=== PATIENT | female | born 1990 | race Asian ===

== ENCOUNTER → 2019-06-22 | Outpatient (CLI) | payer MEDICAID ==
--- NOTE | 2019-06-22 16:50 | RADIOLOGY REPORT (SQ) ---
EXAM DESCRIPTION: U/S [id number] TRNABD 1GES W/ODOP COMPLETED DATE/TIME: 06/22/2019 1:41 pm REASON FOR STUDY: Z34.81 ENCOUNTER FOR SUPRVSN OF NORMAL , FIRST TRIMESTER Z34.81 ENCOUNTE R FOR SUPRVSN OF NORMAL , FIRST TRIM COMPARISON: None. TECHNIQUE: Transabdominal static and realtime grayscale images acquired of the pelvis. Additional se lected spectral and color Doppler images recorded. All images stored on PACs. bHCG: Not available. CLINICAL DATES: 10 week 3 day LIMITATIONS: None. FINDINGS: FETUS: Single Living intrauterine . ULTRASOUND EGA: 11 week 6 day ULTRASOUND MITCHEL: 01/05/2020 EFW: Not applicable less than 20 weeks. CRL: 5.1 cm FHR: 175 beats per minute. SURVEY: Too early to assess. AMNIOTIC FLUID: Adequate amount. PLACENTA: Not yet developed due to early gestation. SUBCHORIONIC BLEED: No. SIZE OF BLEED: Not applicable. UTERUS: No masses. No anomalies. CERVICAL LENGTH: 3.9 cm. Closed. RIGHT ADNEXA: Ovary not identified due to poor acoustical window. No adnexal free fluid. No adnexal masses. LEFT ADNEXA: Normal ovary with normal vascular flow. No adnexal free fluid. No adnexal masses. FREE FLUID: None. OTHER: No other significant finding. IMPRESSION: LIVING INTRAUTERINE . EGA 11 week 6 day Trimester of : First trimester - 0 to 13 weeks. TECHNICAL DOCUMENTATION: JOB ID: [id number] 2010 [employer]- All Rights Reserved rev-08/30 Reading location - IP/workstation name: [email or web address]
== END ==
LOC: RAD 13:11
PROVIDERS: ATTEND Nurse Practitioner Family
DX: Z34.81 Encounter for supervision of other normal pregnancy, first trimester (principal); Z3A.11 11 weeks gestation of pregnancy
CPT/HCPCS: 76801

== ENCOUNTER 2019-12-24 05:02 | Inpatient (IN) | payer MEDICAID ==
[2019-12-24] MEDS ORDERED: OXYTOCIN 10 UNIT/ML VIAL ONE (05:35)
[2019-12-24] MEDS ORDERED: OXYTOCIN/0.9 % SODIUM CHLORIDE 30 UNIT/500 ML RTUINJ ONE (05:36)
[2019-12-24] MEDS ORDERED: LIDOCAINE 1% INJ-PF (10 MG/ML) 30 ML SDV ONE (05:36)
[2019-12-24] MEDS ORDERED: MISOPROSTOL 0.2 MG TABLET ONE (05:36)
--- NOTE | 2019-12-24 06:05 | Admission Physical ---
Datetime Report Generated by CPN: 12/24/2019 06:05 CURRENT ADMISSION Chief Complaint: Uterine Contractions Indication for Induction: Not Applicable Admit Impression : Term, Intrauterine ; Active Labor Admit Plan: Admit to Unit; Initiate Labor Protocol ALLERGIES Medication Allergies: No Latex: No Latex Allergies OBSTETRICAL HISTORY : 5 Para: 3 Gestational Diabetes: No Rh Sensitization: No Incompetent Cervix: No CARMELLA: No Infertility: No ART Treatment: No Uterine Anomaly: No IUGR: No Hx Previous C/S: No Macrosomia: No Hx Loss/Stillborn: No PIH: No Hx : No Placenta Previa/Abruption: No Depression/PP Depression: Yes PTL/PROM: No Post Hemorrhage: No Current Procedures: Ultrasound Obstetrical History Comments: G1- SAB G2- 2010, G3- 2012, G4- 2014, G5- current SEE RECORDS Alcohol: No Marijuana : No Cocaine: No Other Illicit Drugs: No Cigarettes: Former Smoker. [id number] MEDICAL HISTORY Diabetes: No Blood Transfusion: No Pulmonary Disease (Asthma, TB): No Breast Disease: No Hypertension: No Tire Inspector Surgery: No Heart Disease: No Hosp/Surgery: Yes Autoimmune Disorder: No Anesthetic Complications: No Kidney Disease: No Abnormal Pap Smear: No Neuro/Epilepsy: No Psychiatric Disorders: Yes Other Medical Diseases: No Hepatitis/Liver Disease: No Significant Family History: No Varicosities/Phlebitis: No Trauma/Violence : No Thyroid Dysfunction: No Medical History Comments: anxiety/depression in 2014, double jaw surgery in 2016, gall bladder removal 2013, wisdom teeth 2010, childbirth INFECTIOUS HISTORY Gonorrhea: No Genital Herpes: No Chlamydia: No Tuberculosis: No Syphilis: No Hepatitis: No HIV/AIDS Exposure: No Rash or Viral Illness: No HPV: No PHYSICAL EXAM General: Normal HEENT: Normal Neurologic: Normal Thyroid: Normal Heart: Normal Lungs: Normal Breast: Deferred Back: Normal Abdomen: Normal Genitourinary Exam: Normal Extremities: Normal DTRs: Normal Pelvic Type: Adequate Vital Signs: Reviewed VAGINAL EXAM Dilatation: 8 Effacement: 90 Station: -1 MEMBRANES Pooling: Negative Membranes: Intact FETUS A Monitoring: External US FHR- Baseline: 120 Variability: Moderate 6-25bpm Decelerations: None FHR Category: Category I Estimated Weight (gm): 3700 Presentation: Vertex Admit Comment: Admit for labor. Bilateral renal dil. PLANS FOR LABOR AND DELIVERY Labor and Delivery: None Pain Management: Epidural Feeding Preference: Breast Circumcision: N/A INFORMED CONSENT Signature: with User ID: [email or web address]
[2019-12-24] MEDS ORDERED: RINGERS SOLUTION,LACTATED 1,000 ML IV PRN (06:42)
[2019-12-24 06:59] LABS: HEMATOCRIT 34.5 % (36.0-47.0); HEMOGLOBIN 11.9 g/dL (12.0-15.5); MEAN CORPUSCULAR HEMOGLOBIN 29.8 pg (27.0-33.4); MEAN CORPUSCULAR HGB CONC 34.5 g/dL (32.0-36.0); MEAN CORPUSCULAR VOLUME 86 fl (80-97); PLATELET COUNT 205 10^3/uL (150-450); RED BLOOD COUNT 3.99 10^6/uL (3.72-5.28); RED CELL DISTRIBUTION WIDTH 13.7 % (11.5-14.0); WHITE BLOOD COUNT 8.1 10^3/uL (4.0-10.5)
[2019-12-24] MEDS ORDERED: RINGERS SOLUTION,LACTATED 1,000 ML IV ONE (07:10)
[2019-12-24 07:18] LABS: APPEARANCE,URINE CLEAR; BILIRUBIN,URINE NEGATIVE (NEGATIVE); COLOR,URINE YELLOW; GLUCOSE, URINE NEGATIVE (NEGATIVE); KETONES,URINE NEGATIVE (NEGATIVE); LEUKOCYTE ESTERASE,URINE NEGATIVE (NEGATIVE); NITRITE,URINE NEGATIVE (NEGATIVE); PROTEIN,URINE NEGATIVE (NEGATIVE); URINE SPECIFIC GRAVITY 1.011; UROBILINOGEN,URINE NEGATIVE mg/dL (<2.0)
[2019-12-24] MEDS ORDERED: ACETAMINOPHEN WITH CODEINE #3 TABLET PO PRN ×2 (07:31)
[2019-12-24] MEDS ORDERED: DIBUCAINE 1% OINTMENT 28 GM TP PRN (07:31)
[2019-12-24] MEDS ORDERED: BENZOCAINE/MENTHOL AEROSOL SPRAY 56 ML TOP PRN (07:31)
[2019-12-24] MEDS ORDERED: ACETAMINOPHEN 650 MG SUPP.RECT PR PRN (07:31)
[2019-12-24] MEDS ORDERED: NA PHOS,M-B/NA PHOS,DI-BA (ADULT) 133 ML ENEMA PR PRN (07:31)
[2019-12-24] MEDS ORDERED: PSEUDOEPHEDRINE HCL 30 MG TABLET PO PRN (07:31)
[2019-12-24] MEDS ORDERED: MEASLES,MUMPS&RUBELLA VACC/PF 0.5 ML VIAL SUBCUT PRN ×2 (07:31→15:30)
[2019-12-24] MEDS ORDERED: DIPHENHYDRAMINE HCL 25 MG CAPSULE PO PRN (07:31)
[2019-12-24] MEDS ORDERED: PROMETHAZINE HCL 25 MG TABLET PO PRN (07:31)
[2019-12-24] MEDS ORDERED: GLYCERIN/WITCH HAZEL LEAF 1 EACH MED..WIPE TP PRN (07:31)
[2019-12-24] MEDS ORDERED: DIPH/PERTUSS(ACELL)/TETANUS VAC/PF 0.5 ML SYR (>=10YO) IM PRN ×2 (07:31→15:30)
[2019-12-24] MEDS ORDERED: PROMETHAZINE HCL 25 MG SUPP.RECT PR PRN (07:31)
[2019-12-24] MEDS ORDERED: ZOLPIDEM TARTRATE 5 MG TABLET PO PRN (07:31)
[2019-12-24] MEDS ORDERED: PROMETHAZINE HCL INJ 25 MG/1 ML VIAL IV PRN ×2 (07:31→15:30)
[2019-12-24] MEDS ORDERED: MAGNESIUM HYDROXIDE SUSP 30 ML UDCUP PO PRN (07:31)
[2019-12-24] MEDS ORDERED: OXYTOCIN/0.9 % SODIUM CHLORIDE 30 UNIT/500 ML RTUINJ IV PRN (07:31)
[2019-12-24 07:33] LABS: URINE AMPHETAMINES SCREEN NEGATIVE; URINE BARBITURATES SCREEN NEGATIVE; URINE BENZODIAZEPINES SCREEN NEGATIVE; URINE COCAINE SCREEN NEGATIVE; URINE MARIJUANA (THC) SCREEN NEGATIVE; URINE METHADONE SCREEN NEGATIVE; URINE PHENCYCLIDINE SCREEN NEGATIVE
[2019-12-24 07:39] LABS: ABSOLUTE LYMPHOCYTES# (MANUAL) 2.4 10^3/uL (0.5-4.7); ABSOLUTE MONOCYTES # (MANUAL) 0.7 10^3/uL (0.1-1.4); BASOPHILS % (MANUAL) 0 % (0-2); EOSINOPHILS % (MANUAL) 0 % (0-6); LYMPHOCYTES % (MANUAL) 30 % (13-45); MONOCYTES % (MANUAL) 9 % (3-13); SEGMENTED NEUTROPHILS % (MAN) 61 % (42-78); TOTAL CELLS COUNTED 100
[2019-12-24 07:40] LABS: ANISOCYTOSIS SLIGHT
[2019-12-24 07:41] LABS: PLATELET COMMENT ADEQUATE
[2019-12-24] MEDS ORDERED: BENZOCAINE/MENTHOL AEROSOL SPRAY 56 ML ONE (08:28)
[2019-12-24] MEDS ORDERED: ACETAMINOPHEN WITH CODEINE #3 TABLET ONE (08:28)
[2019-12-24] MEDS ORDERED: FERROUS SULFATE 325 MG TABLET PO ONE (09:44)
[2019-12-24] MEDS ORDERED: DOCUSATE SODIUM 100 MG CAPSULE ONE (09:44)
[2019-12-24] MEDS ORDERED: SENNOSIDES/DOCUSATE 8.6-50 MG 1 EACH TABLET ONE (09:44)
[2019-12-24] MEDS ORDERED: PRENATAL VITAMIN W DHA CAPSULE PO ONE (09:44)
[2019-12-24] MEDS ORDERED: FAMOTIDINE 20 MG TABLET ONE (09:44)
[2019-12-24] MEDS: FERROUS SULFATE 325 MG TABLET PO SCH ×2 (09:55→17:58)
[2019-12-24] MEDS: SENNOSIDES/DOCUSATE 8.6-50 MG 1 EACH TABLET PO SCH (09:55)
[2019-12-24] MEDS: DOCUSATE SODIUM 100 MG CAPSULE PO SCH ×2 (09:55→17:58)
[2019-12-24] MEDS: FAMOTIDINE 20 MG TABLET PO SCH ×2 (09:55→22:39)
[2019-12-24] MEDS: PRENATAL VITAMIN W DHA CAPSULE PO SCH (09:55)
--- NOTE | 2019-12-24 10:01 | Birth Certificate Data ---
Cert Data Datetime Report Generated by CPZiggy: 12/24/2019 10:00 CERTIFICATE DATA 47a. Care: Yes (12/24/2019 05:36:Alma Dunham RN) 47b. Date of First Visit: 06/08/2019 00:00 (12/24/2019 05:36:Michelle Juarez RN) 47c. Date of Last Visit: 12/23/2019 00:00 (12/24/2019 05:36:Michelle Juarez RN) 47d. Number of Visits: 12 (12/24/2019 05:36:Michelle Juarez RN) 48a. Number of Prev Live Births: 3 (12/24/2019 05:36:Alma Dunham RN) 48b. Now Livin (12/24/2019 05:36:Alma Dunham RN) 48c. Live Births Now : 0 (12/24/2019 05:36:QS system process) 48e. Losses: 1 (12/24/2019 05:36:Michelle Juarez RN) 48f. Date of Last Preg Loss: 04/15/2008 00:00 (12/24/2019 05:36:Michelle Juarez RN) RISK FACTORS IN THIS 49a. Diabetes: No (12/24/2019 05:36:Alma Dunham RN) 49b. Hypertension: No (12/24/2019 05:36:Alma Dunham RN) 49c. Previous Births: 0 (12/24/2019 05:36:Michelle Juarez RN) 49d. Stillborns: No (12/24/2019 05:36:Alma Dunham RN) 49d. IUGR: No (12/24/2019 05:36:Alma Dunham RN) 49e. Infertility Treatment: No (12/24/2019 05:36:Alma Dunham RN) 49f. Previous Cesareans: 0 (12/24/2019 05:36:Alma Dunham RN) Mother's Height 50b. Height Inches: 62 (12/24/2019 06:47:QS system process) Mother's Weight 51a. Pre- Weight (lbs): 115 (12/24/2019 05:36:Michelle Juarez RN) 51b. Weight at Delivery (lbs): 152 (12/24/2019 06:47:QS system process) 52. Dt Last Normal Menses Began: 04/10/2019 00:00 (12/24/2019 05:36:Michelle Juarez RN) Infections Present/Treated 53a. Gonorrhea: No (12/24/2019 05:36:Alma Dunham RN) Results this Hospital Visit : Negative (12/24/2019 05:36:Alma Dunham RN) 53b. Syphilis: No (12/24/2019 05:36:Alma Dunham RN) Results this Hospital Visit: NONREACTIVE (12/24/2019 05:52:QS system process) 53c. Chlamydia: No (12/24/2019 05:36:Alma Dunham RN) Results this Hospital Visit: Negative (12/24/2019 05:36:Alma Dunham RN) 53d. Hepatitis B: No (12/24/2019 05:36:Alma Dunham RN) Results this Hospital Visit: Negative (12/24/2019 05:36:Alma Dunham RN) 53h. Mother Tested for HBsAG: Yes (12/24/2019 05:36:Alma Dunham RN) 53i. Date Tested: 07/14/2019 00:00 (12/24/2019 05:36:Alma Dunham RN) 53j. Test Result: Negative (12/24/2019 05:36:Alma Dunham RN) Obstetric Procedures 54a, b, c. Obstetric Procedures: Ultrasound (12/24/2019 05:36:Alma Dunham RN) Cigarette Smoking 55a. 3 Months Before Preg - Ci-2 (12/24/2019 05:36:Alma Dunham RN) 55a. Packs: 0 (12/24/2019 05:36:Michelle Juarez RN) 55b. 1st Trimester of Preg- Ci (12/24/2019 05:36:Michelle Juarez RN) 55b. Packs: 0 (12/24/2019 05:36:Michelle Juarez RN) 55c. 2nd Trimester of Preg- Ci (12/24/2019 05:36:Michelle Juarez RN) 55c. Packs: 0 (12/24/2019 05:36:Michelle Juarez RN) 55d. 3rd Trimester of Preg- Ci (12/24/2019 05:36:Michelle Juarez RN) 55d. Packs: 0 (12/24/2019 05:36:Michelle Juarez RN) Onset of Labor 56a. PROM >12 Hrs: 0.20 (12/24/2019 05:36:QS system process) 56b. Precipitous Labor <3 Hrs: 4 (12/24/2019 05:36:QS system process) 56c. Prolonged Labor > 20 Hrs: 4 (12/24/2019 05:36:QS system process) 57a. Induction of Labor: N/A (12/24/2019 05:36:Michelle Juarez RN) 57c. Non-Vertex Presentation A: Vertex (12/24/2019 05:36:[facility] ([facility])) 57d. Steroids - Lung Mat: None (12/24/2019 05:36:Daniel Colon MD ([facility])) 57d. Steroids - Lung Mat: Not Applicable (12/24/2019 05:36:Daniel Colon MD ([facility])) 57g. Moderate/Heavy Meconium: Clear (12/24/2019 07:30:Michelle Juarez RN) 57h. Intolerance of Labor: N/A (12/24/2019 05:36:Michelle Juarez RN) : N/A (12/24/2019 05:36:Michelle Juarez RN) 57i. Epidural/Spinal Anesthesia: None (12/24/2019 05:36:Daniel Colon MD ([facility])) Method of Delivery 58a. Forceps - Unsuccessful A: N/A (12/24/2019 05:36:Michelle Juarez RN) 58b. Vacuum - Unsuccessful A: N/A (12/24/2019 05:36:Michelle Juarez RN) 58c. Presentation at 58c. Presentation at - A : Vertex (12/24/2019 05:36:Daniel Colon MD ([facility])) 58c. Presentation at - A : N/A (12/24/2019 05:36:Michelle Juarez RN) 58c. Presentation at - A : Cephalic (12/24/2019 05:36:Daniel Colon MD ([facility])) Final Route and Method of Del 58d. Baby A Route/Delivery: Vaginal (12/24/2019 05:36:Michelle Juarez RN) 58e. Trial of Labor Attempted: No (12/24/2019 05:36:Michelle Juarez RN) 58e. Trial of Labor Attempted A: N/A (12/24/2019 05:36:Michelle Juarez RN) 58e. Trial of Labor Attempted B: N/A (12/24/2019 05:36:Michelle Juarez RN) Maternal Morbidity 59b. 3rd or 4th Degree Lacs: Perineal (12/24/2019 05:36:Daniel Colon MD ([facility])) Birthweight Baby A: 3150 (12/24/2019 05:36:Michelle Juarez RN) 60a. Pounds : 6 (12/24/2019 05:36:QS system process) 60b. Ounces: 15 (12/24/2019 05:36:QS system process) 61. GA at Delivery Baby A: 38.2 (12/24/2019 05:36:Michelle Juarez RN) : Early Term- 37- 38.6 Weeks (12/24/2019 05:36:QS system process) 62a. 5 Minute Baby A: 9 (12/24/2019 05:36:QS system process)
--- NOTE | 2019-12-24 10:01 | Delivery Summary ---
Del Sum A-C Datetime Report Generated by CPN: 12/24/2019 10:00 DELIVERY PERSONNEL DELIVERY PERSONNEL: [id number] Delivery Doctor:: Daniel Colon MD Labor and Delivery Nurse:: Michelle Juarez, RN Nursery Nurse:: Kassandra Anthony, RN MATERNAL INFORMATION Delivery Anesthesia: None Medications After Delivery: Pitocin 30 Units in 500ml NS/D5W Estimated Blood Loss (ml): 250 Maternal Complications: None LABOR SUMMARY EDC: 01/05/2020 00:00 No. Babies in Womb: 1 Attempted: No Labor Anesthesia: None LABOR INFORMATION Reason for Induction: Not Applicable Onset of Labor: 12/24/2019 03:00 Complete Dilatation: 12/24/2019 07:36 Oxytocin: N/A Group B Beta Strep: negative Antibiotics # of Doses: 0 Name of Antibiotic Given: N/A Steroids Given: None Reason Steroids Not Administered: Not Applicable MEMBRANES Membranes Rupture Method: Artificial Rupture of Membranes: 12/24/2019 07:30 Length of Rupture (hr): 0.20 Amniotic Fluid Color: Clear Amniotic Fluid Amount: Moderate Amniotic Fluid Odor: None STAGES OF LABOR Stage 1 hr: 4 Stage 1 min: 36 Stage 2 hr: 0 Stage 2 min: 6 Stage 3 hr: 0 Stage 3 min: -4 Total Time in Labor hr: 4 Total Time in Labor min: 38 VAGINAL DELIVERY Episiotomy: None Laceration #1: Perineal Laceration Extension #1: Second Degree Laceration #2: None Laceration Extension #2: N/A Laceration #3: None Laceration Extension #3: N/A Laceration Repair: Yes Laceration Repair Note: Very small second degree perineal laceration repaired with 3-0 chromic in usual fashion Initial Vag Sponge Count: N/A Final Vag Sponge Count: N/A Initial Vag Sharps Count: N/A Final Vag Sharps Count: N/A Sponge Count Correct: Vaginal Sweep Performed Sharps Count Correct: N/A CSECTION DELIVERY Primary Indication: N/A Secondary Indication: N/A CSection Incidence: N/A Labor: N/A Elective: N/A CSection Incision: N/A BABY A INFORMATION Delivery Date/Time: 12/24/2019 07:42 Method of Delivery: Vaginal Nurse Controlled Delivery: No Born in Route : No : N/A Forceps: N/A Vacuum Extraction: N/A Shoulder Dystocia : No PRESENTATION/POSITION BABY A Presentation: Cephalic Cephalic Presentation: Vertex Vertex Position: Right Occipital Anterior Breech Presentation: N/A PLACENTA INFORMATION BABY A Placenta Delivery Time : 12/24/2019 07:38 Placenta Method of Delivery: Spontaneous Placenta Status: Delivered SCORES BABY A Heart Rate 1 min: >100 bpm Resp Effort 1 min: Good Cry Reflex Irritability 1 min: Cough or Sneeze or Pulls Away Muscle Tone 1 min: Active Motion Color 1 min: Body [place], Extremities Blue Resuscitation Effort 1 min: Tactile Stimulation SCORE 1 MIN: 9 Heart Rate 5 min: >100 bpm Resp Effort 5 min: Good Cry Reflex Irritability 5 min: Cough or Sneeze or Pulls Away Muscle Tone 5 min: Active Motion Color 5 min: Body [place], Extremities Blue Resuscitation Effort 5 min: Tactile Stimulation SCORE 5 MIN: 9 INFANT INFORMATION BABY A Gestational Age at Delivery: 38.2 Gestational Status: Early Term- 37- 38.6 Weeks Infant Outcome : Liveborn Condition : Stable Infant Sex: Female IDENTIFICATION BABY A Infant Verification Date/Time: 12/24/2019 08:14 ID Band Number: [id number] Mother's Name Verified: Yes Infant RN Verifying : Nirajefrain,JHONNY Additional Verifying Personnel: JHONNY Colbert WEIGHT/LENGTH BABY A Infant Birthweight (gm): 3150 Weight (lb): 6 Weight (oz): 15 Length (in): 20.50 Length (cm): 52.07 CORD INFORMATION BABY A No. Cord Vessels: 3 Nuchal Cord : Around Neck x1, Tight Cord Blood Taken: Yes-For Eval (Mom's Blood Type - or O+) Suction: None (Annotations: Data stored by 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
[2019-12-24] MEDS: IBUPROFEN 800 MG TABLET PO SCH ×2 (13:14→22:39)
[2019-12-25] MEDS: IBUPROFEN 800 MG TABLET PO SCH ×3 (05:14→21:43)
[2019-12-25 07:17] LABS: HEMATOCRIT 28.3 % (36.0-47.0); HEMOGLOBIN 9.9 g/dL (12.0-15.5); MEAN CORPUSCULAR HEMOGLOBIN 30.4 pg (27.0-33.4); MEAN CORPUSCULAR HGB CONC 34.9 g/dL (32.0-36.0); MEAN CORPUSCULAR VOLUME 87 fl (80-97); PLATELET COUNT 182 10^3/uL (150-450); RED BLOOD COUNT 3.24 10^6/uL (3.72-5.28); RED CELL DISTRIBUTION WIDTH 13.6 % (11.5-14.0); WHITE BLOOD COUNT 9.7 10^3/uL (4.0-10.5)
[2019-12-25] MEDS: FERROUS SULFATE 325 MG TABLET PO SCH ×2 (09:11→17:32)
[2019-12-25] MEDS: SENNOSIDES/DOCUSATE 8.6-50 MG 1 EACH TABLET PO SCH (09:11)
[2019-12-25] MEDS: DOCUSATE SODIUM 100 MG CAPSULE PO SCH ×2 (09:11→17:32)
[2019-12-25] MEDS: PRENATAL VITAMIN W DHA CAPSULE PO SCH (09:11)
[2019-12-25] MEDS: FAMOTIDINE 20 MG TABLET PO SCH ×2 (09:11→21:45)
--- NOTE | 2019-12-25 12:34 | PDOC PROGRESS REPORT ---
Subjective-OB Progress Note for:: 12/25/19 Subjective: Pt doing well, no concerns. She reports light bleeding reg diet and voiding w/o difficulty. Physical Exam (OB) Vital Signs: Temp Pulse Resp BP Pulse Ox 97.9 F 70 16 112/64 100 12/25/19 10:00 12/25/19 07:13 12/25/19 07:13 12/25/19 07:13 12/25/19 07:13 Intake & Output 12/24/19 12/25/19 12/26/19 06:59 06:59 06:59 Weight 69.3 kg - Maternal Morbidity 59. Maternal Morbidity (serious complications experinced by the mother associated with labor and delivery: None of the above - Lochia Lochia Amount: Small 10-25 ml Lochia Color: Rubra/Red - Abdomen Description: Soft, Round Hernia Present: No Fundal Description: Firm, Midline Fundal Height: u/u - u/2 Objective-Diagnostic Laboratory: 12/25/19 06:38 12/25/19 06:38 WBC 9.7 RBC 3.24 L Hgb 9.9 L Hct 28.3 L MCV 87 MCH 30.4 MCHC 34.9 RDW 13.6 Plt Count 182 Assessment and Plan(PN) - Assessment and Plan (1) Active labor at term Is this a current diagnosis for this admission?: Yes (2) Second degree perineal laceration during delivery Is this a current diagnosis for this admission?: Yes (3) Vaginal delivery Is this a current diagnosis for this admission?: Yes - Time Spent with Patient Time with patient: Less than 15 minutes Medications reviewed and adjusted accordingly: Yes - Disposition Anticipated Discharge Disposition: Home, Self Care Anticipated Discharge Timeframe: within 24 hours
[2019-12-26] MEDS: IBUPROFEN 800 MG TABLET PO SCH (05:34)
[2019-12-26 08:08] VITALS: BP 98/63
--- NOTE | 2019-12-26 08:51 | PDOC DISCHARGE SUMMARY ---
Impression - Admit/DC Date/PCP Admission Date/Primary Care Provider: 12/24/19 05:42 ALAINA YOST MD Discharge Date: 12/26/19 - Discharge Diagnosis (1) Active labor at term Is this a current diagnosis for this admission?: Yes (2) Second degree perineal laceration during delivery Is this a current diagnosis for this admission?: Yes (3) Vaginal delivery Is this a current diagnosis for this admission?: Yes - Additional Information Resuscitation Status: Full Code Discharge Diet: Regular Discharge Activity: Activity As Tolerated, Pelvic Rest Referrals: ALAINA YOST MD [Primary Care Provider] - Home Medications: Prenat 115/Iron Fum/Folic/Dss [ 19 Tablet] 1 tab PO DAILY 12/24/19 HPI Gestational Age: 38.2 Reason(s) for Admission: Onset of Labor Procedures: NST Intrapartum Procedure(s): Spontaneous Vaginal Delivery Complication(s): Laceration-Perineal Laceration-Degree: 2nd Hospital Course 59. Maternal Morbidity (serious complications experinced by the mother associated with labor and delivery: None of the above Results Laboratory Results: WBC 9.7 10^3/uL (4.0-10.5) 12/25/19 06:38 RBC 3.24 10^6/uL (3.72-5.28) L 12/25/19 06:38 Hgb 9.9 g/dL (12.0-15.5) L 12/25/19 06:38 Hct 28.3 % (36.0-47.0) L 12/25/19 06:38 MCV 87 fl (80-97) 12/25/19 06:38 MCH 30.4 pg (27.0-33.4) 12/25/19 06:38 MCHC 34.9 g/dL (32.0-36.0) 12/25/19 06:38 RDW 13.6 % (11.5-14.0) 12/25/19 06:38 Plt Count 182 10^3/uL (150-450) 12/25/19 06:38 Lymph % (Auto) Not Reportable 12/24/19 05:52 [place] % (Auto) Not Reportable 12/24/19 05:52 Eos % (Auto) Not Reportable 12/24/19 05:52 Baso % (Auto) Not Reportable 12/24/19 05:52 Absolute Neuts (auto) Not Reportable 12/24/19 05:52 Absolute Lymphs (auto) Not Reportable 12/24/19 05:52 Absolute Monos (auto) Not Reportable 12/24/19 05:52 Absolute Eos (auto) Not Reportable 12/24/19 05:52 Absolute Basos (auto) Not Reportable 12/24/19 05:52 Total Counted 100 12/24/19 05:52 Seg Neutrophils % Not Reportable 12/24/19 05:52 Seg Neuts % (Manual) 61 % (42-78) 12/24/19 05:52 Lymphocytes % (Manual) 30 % (13-45) 12/24/19 05:52 Monocytes % (Manual) 9 % (3-13) 12/24/19 05:52 Eosinophils % (Manual) 0 % (0-6) 12/24/19 05:52 Basophils % (Manual) 0 % (0-2) 12/24/19 05:52 Abs Neuts (Manual) 4.9 10^3/uL (1.7-8.2) 12/24/19 05:52 Abs Lymphs (Manual) 2.4 10^3/uL (0.5-4.7) 12/24/19 05:52 Abs Monocytes (Manual) 0.7 10^3/uL (0.1-1.4) 12/24/19 05:52 Absolute Eos (Manual) 0.0 10^3/uL (0.0-0.6) 12/24/19 05:52 Abs Basophils (Manual) 0.0 10^3/uL (0.0-0.2) 12/24/19 05:52 Platelet Comment ADEQUATE 12/24/19 05:52 Anisocytosis SLIGHT 12/24/19 05:52 Urine Color YELLOW 12/24/19 05:22 Urine Appearance CLEAR 12/24/19 05:22 Urine pH 7.0 (5.0-9.0) 12/24/19 05:22 Ur Specific [place] 1.011 12/24/19 05:22 Urine Protein NEGATIVE mg/dL (NEGATIVE) 12/24/19 05:22 Urine Glucose (UA) NEGATIVE mg/dL (NEGATIVE) 12/24/19 05:22 Urine Ketones NEGATIVE mg/dL (NEGATIVE) 12/24/19 05:22 Urine Blood NEGATIVE (NEGATIVE) 12/24/19 05:22 Urine Nitrite NEGATIVE (NEGATIVE) 12/24/19 05:22 Urine Bilirubin NEGATIVE (NEGATIVE) 12/24/19 05:22 Urine Urobilinogen NEGATIVE mg/dL (<2.0) 12/24/19 05:22 Ur Leukocyte Esterase NEGATIVE (NEGATIVE) 12/24/19 05:22 Urine Ascorbic Acid NEGATIVE (NEGATIVE) 12/24/19 05:22 Urine Opiates Screen NEGATIVE 12/24/19 05:22 Urine Methadone Screen NEGATIVE 12/24/19 05:22 Ur Barbiturates Screen NEGATIVE 12/24/19 05:22 Ur Phencyclidine Scrn NEGATIVE 12/24/19 05:22 Ur Amphetamines Screen NEGATIVE 12/24/19 05:22 U Benzodiazepines Scrn NEGATIVE 12/24/19 05:22 Urine Cocaine Screen NEGATIVE 12/24/19 05:22 U Marijuana (THC) Screen NEGATIVE 12/24/19 05:22 RPR NONREACTIVE (NONREACTIVE) 12/24/19 05:52 Blood Type O POSITIVE 12/24/19 05:52 Antibody Screen NEGATIVE 12/24/19 05:52 Plan Plan of Treatment: f/u at [facility] 4 wks Time Spent: Less than 30 Minutes
[2019-12-26] MEDS: PRENATAL VITAMIN W DHA CAPSULE PO SCH (09:16)
[2019-12-26] MEDS: SENNOSIDES/DOCUSATE 8.6-50 MG 1 EACH TABLET PO SCH (09:16)
[2019-12-26] MEDS: FERROUS SULFATE 325 MG TABLET PO SCH (09:16)
[2019-12-26] MEDS: FAMOTIDINE 20 MG TABLET PO SCH (09:16)
[2019-12-26] MEDS: DOCUSATE SODIUM 100 MG CAPSULE PO SCH (09:16)
== END 2019-12-26 13:00 | disposition home or self-care (01) | DRG 807 ==
LOC: LC 05:02 → LR 05:42 → 2N 12:35
PROVIDERS: ADMIT Obstetrics & Gynecology; ATTEND Obstetrics & Gynecology
PROC: 10E0XZZ Delivery of Products of Conception, External Approach (ICD-10-PCS; principal; 2019-12-24)
PROC: 0KQM0ZZ Repair Perineum Muscle, Open Approach (ICD-10-PCS; 2019-12-24)
DX: O69.1XX0 Labor and delivery complicated by cord around neck, with compression, not applicable or unspecified (principal); Z37.0 Single live birth; O99.344 Other mental disorders complicating childbirth; O70.1 Second degree perineal laceration during delivery; F41.8 Other specified anxiety disorders; Z3A.38 38 weeks gestation of pregnancy
CPT/HCPCS: 36415; 80307; 81005; 85027; 86592; 86850; 86900; 86901; J2590; J3490